=== PATIENT | male | born 1960 | race American Indian/Alaskan Native ===

== ENCOUNTER 2018-01-10 14:53 | Emergency (ER) | payer OTHER ==
[2018-01-10] MEDS ORDERED: fentaNYL 100 MCG/2 ML SDV IVPUSH ONE (15:17)
[2018-01-10] MEDS ORDERED: Lidocaine 1% with EPINEPHrine 1:100,000 20 ML MDV INJECT ONE (15:17)
--- NOTE | 2018-01-10 15:45 | EDM.PDOC ---
ED HPI GENERAL MEDICAL PROBLEM - General Chief Complaint: Laceration Stated Complaint: HEAD INJURY AT WORK Time Seen by Provider: 01/10/18 15:15 Source of Information: Reports: Patient History Limitations: Reports: No Limitations - History of Present Illness INITIAL COMMENTS - FREE TEXT/NARRATIVE: Patient presents to ER with a large laceration to the left side of his head. was up on a ladder working on his house when it slipped on the ice and he fell. landed on his feet but fell back hitting his head on the ladder. No loss of consciousness. Was able to get himself up and go to a friend for help. Denies any neck pain. does have pain to the laceration site but real considerable headache. Denies any chest discomfort or shortness of breath. He does have an abrasion to his right leg and mild swelling of his right thumb as he thinks he caught his hand when reaching out to try to stop himself from falling. Denies any nausea at present. Onset: Today, Sudden Duration: Minutes: Location: Reports: Head, Lower Extremity, Right Quality: Reports: Throbbing Severity: Moderate Improves with: Reports: Rest Associated Symptoms: Reports: Headaches. Denies: Confusion, Nausea/Vomiting, Shortness of Breath, Syncope - Related Data Allergies Allergy/AdvReac Type Severity Reaction Status Date / Time No Known Allergies Allergy Verified 02/13/16 16:49 Home Meds: Home Meds Atenolol 50 mg PO DAILY 02/13/16 [History] Simvastatin [Zocor] 20 mg PO BEDTIME 02/13/16 [History] Past Medical History Cardiovascular History: Reports: High Cholesterol, Hypertension - Past Surgical History Musculoskeletal Surgical History: Reports: Knee Replacement Social & Family History - Family History Family Medical History: Noncontributory - Caffeine Use Caffeine Use: Reports: Coffee ED ROS GENERAL - Review of Systems Review Of Systems: See Below Constitutional: Denies: Fever, Chills, Weakness, Decreased Appetite HEENT: Denies: Ear Discharge, Ear Pain, Vertigo, Vision Change Respiratory: Denies: Shortness of Breath, Cough Cardiovascular: Denies: Chest Pain, Lightheadedness Endocrine: Denies: Fatigue GI/Abdominal: Denies: Abdominal Pain, Nausea, Vomiting : Reports: No Symptoms Musculoskeletal: Reports: Leg Pain, Other (thumb pain). Denies: Neck Pain, Back Pain Skin: Reports: Wound Neurological: Reports: Headache. Denies: Confusion, Dizziness, Syncope, Weakness Psychiatric: Reports: No Symptoms ED EXAM, HEAD INJURY - Physical Exam Exam: See Below Text/Narrative:: Patient presents with large laceration to head. Did not have loss of consciousness. GCS 15. Airway patent Lung sounds clear, good oxygen sats. No neck tenderness with slow good range of motion noted, no vertebral tenderness by exam. Neuro exam all intact, Cranial nerves all intact. No gait ataxia. No dizziness with sitting patient up at the edge of the bed No pelvic instability or pain Exam Limited By: No Limitations General Appearance: Alert, WD/WN, No Apparent Distress Head: Normocephalic, Scalp Lacerations. No: Rowan's Sign Nexus Criteria: No: Posterior, Midline Cervical Tenderness, Evidence of Intoxication, Altered Level of Consciousness, Focal Neurological Deficit, Painful Distraction Injuries Eyes: Bilateral Eye: EOMI, PERRL Ears: Normal External Exam, Normal TMs Nose: Normal Inspection, Normal Mucousa, No Blood Throat/Mouth: Normal Inspection, Normal Oropharynx Neck: Non-Tender, Full Range of Motion, Normal Alignment, Normal Inspection Respiratory: No Respiratory Distress, Lungs Clear, Normal Breath Sounds Cardiovascular: Regular Rate, Rhythm GI/Abdominal Exam: Normal Bowel Sounds, Soft, Non-Tender Extremities: Other (Small hematoma/ecchymotic area to right calf. Abrasion noted to skin. right thumb is mildly swollen and bruised. has good range of motion without pain and with resistance.) Neurologic: rn social services II-XII nml As Tested, No Motor/Sensory Deficits, Alert, Normal Mood/Affect, Oriented x 3 Skin: Other (wound to scalp) - Jesse Coma Score Best Eye Response (Ten Sleep): (4) Open Spontaneously Best Verbal Response (Jesse): (5) Oriented Best Motor Response (Ten Sleep): (6) Obeys Commands ED LACERATION/WOUND & TOI PROC - Laceration/Wound Repair Left Head Lac/wound length in cm: 17 Anesthetic Type: Local Local Anesthesia - Lidocaine (Xylocaine): 1% with EPI Local Anesthetic Volume: Other (12) Skin Prep: Saline, Other (saf-clens) Exploration/Debridement/Repair: Wound Explored, Explored to Base (hair shaved and trimmed around the wound) Closed with: Jamie (32) Sterile Dressing Applied: Nurse Tetanus Status Addressed: Yes Complications: No Course - Vital Signs Last Recorded V/S: Last Vital Signs Temp 99.3 F 01/10/18 15:10 Pulse 67 01/10/18 15:10 Resp 20 01/10/18 15:10 BP 185/83 H 01/10/18 15:10 Pulse Ox 97 01/10/18 15:10 - Orders/Labs/Meds Orders: Active Orders 24 hr Category Date Time Status Vaccines to be Administered [RC] PER UNIT ROUTINE Care 01/10/18 15:58 Active Meds: Medications Discontinued Medications Generic Name Dose Route Start Last Admin Trade Name Freq PRN Reason Stop Dose Admin Diphtheria/Tetanus/Acell Pertussis 0.5 ml 01/10/18 15:57 01/10/18 16:16 Adacel IM 01/10/18 15:58 Not Given .ONCE ONE Fentanyl 50 mcg 01/10/18 15:17 01/10/18 15:25 Sublimaze IVPUSH 01/10/18 15:18 50 mcg ONETIME ONE Administration Lidocaine/Epinephrine 20 ml 01/10/18 15:17 01/10/18 15:10 Xylocaine 1% With Epinephrine 1:100,000 INJECT 01/10/18 15:18 20 ml ONETIME ONE Administration Neomycin/Polymyxin/Bacitracin 1 each 01/10/18 15:59 01/10/18 16:04 Triple Antibiotic Oint TOP 01/10/18 16:00 1 each ONETIME ONE Administration Neomycin/Polymyxin/Bacitracin Confirm 01/10/18 15:52 Triple Antibiotic Oint Administered 01/10/18 15:53 Dose 6 each .ROUTE .[facility] - Re-Assessments/Exams Free Text/Narrative Re-Assessment/Exam: 01/10/18 1540 Neuro exam reevaluated after staple repair, remains unchanged and negative. Departure - Departure Time of Disposition: 15:43 Disposition: Home, Self-Care 01 Condition: Fair Clinical Impression: Broken skin - Discharge Information *PRESCRIPTION DRUG MONITORING PROGRAM REVIEWED*: No *COPY OF PRESCRIPTION DRUG MONITORING REPORT IN PATIENT LEN: No Instructions: Head Injury, Adult, Wound Care, Adult Forms: ED Department Discharge Additional Instructions: 1. head injury instructions 2. wound care instructions 3. If any neurological changes, confusion, vomiting, vision changes, needs to return for CT scan of the head 4. Stay with someone today for observation 5. Jamie out next Saturday with Kimmy Buchanan PA-C in [place] 6. Call with any questions - My Orders Last 24 Hours: My Active Orders 01/10/18 15:58 Vaccines to be Administered [RC] PER UNIT ROUTINE - Assessment/Plan Last 24 Hours: My Active Orders 01/10/18 15:58 Vaccines to be Administered [RC] PER UNIT ROUTINE
[2018-01-10] MEDS ORDERED: Bacitracin/Neomycin/Polymyxin B Oint 0.9 GM U/D Packet ONE (15:52)
[2018-01-10] MEDS ORDERED: Diphtheria,Pertussis(Acell),Tetanus Vaccine 0.5 ML Syringe IM ONE ×2 (15:57→16:10)
[2018-01-10] MEDS ORDERED: Bacitracin/Neomycin/Polymyxin B Oint 0.9 GM U/D Packet TOP ONE (15:59)
[2018-01-10 16:57] VITALS: BP 185/83
== END 2018-01-10 16:25 | disposition home or self-care (01) ==
LOC: CC.ED 14:53
DX: S01.01XA Laceration without foreign body of scalp, initial encounter (principal); S80.11XA Contusion of right lower leg, initial encounter; S60.011A Contusion of right thumb without damage to nail, initial encounter; I10 Essential (primary) hypertension; Z23 Encounter for immunization; W11.XXXA Fall on and from ladder, initial encounter
CPT/HCPCS: 12005; 90471; 96374; 99283; J3010; 90715

== ENCOUNTER 2018-09-19 00:25 | Emergency (ER) | payer SELFPAY ==
[2018-09-19 00:28] VITALS: BP 121/73
[2018-09-19] MEDS ORDERED: cefTRIAXone 1 GM Vial IM ONE (01:02)
[2018-09-19] MEDS ORDERED: Ketorolac 60 MG/2 ML SDV IM ONE (01:02)
[2018-09-19] MEDS ORDERED: Take Home: Acetaminophen/HYDROcodone 325-5 MG, 2 Tab Pack PO ONE (01:02)
[2018-09-19] MEDS ORDERED: Lidocaine 1% 20 ML MDV INJECT ONE (01:08)
--- NOTE | 2018-09-19 01:08 | EDM.PDOC ---
ED HPI GENERAL MEDICAL PROBLEM - General Chief Complaint: General Stated Complaint: "hemorrhoids hurting after I fell yesterday" Time Seen by Provider: 09/19/18 00:50 Source of Information: Reports: Patient History Limitations: Reports: No Limitations - History of Present Illness INITIAL COMMENTS - FREE TEXT/NARRATIVE: Patient presents with complaints of left buttock/hemorrhoid pain. States slipped yesterday on the steps, fell and landed on his buttock. Had a great deal of discomfort to the area since that time. Thought it was related to a hemorrhoid. Has not been able to get comfortable since this occurred. Noted that it feels warm to the area as well. No fevers. Not aware of any open sores or cuts from the fall. Onset: Gradual Duration: Day(s): Location: Reports: Other (left buttock) Quality: Reports: Throbbing Severity: Moderate Improves with: Reports: None Associated Symptoms: Denies: Chest Pain, Cough, Fever/Chills, Loss of Appetite, Nausea/Vomiting, Shortness of Breath, Weakness HEMMORRHOIDS Pain Score (Numeric/FACES): 3 - Related Data Allergies Allergy/AdvReac Type Severity Reaction Status Date / Time No Known Allergies Allergy Verified 09/19/18 00:28 Home Meds: Home Meds Atenolol 50 mg PO DAILY 02/13/16 [History] Simvastatin [Zocor] 20 mg PO BEDTIME 02/13/16 [History] Past Medical History Other HEENT History: Laceration to head. Cardiovascular History: Reports: High Cholesterol, Hypertension - Past Surgical History Musculoskeletal Surgical History: Reports: Knee Replacement Social & Family History - Family History Family Medical History: Noncontributory - Tobacco Use Smoking Status *Q: Never Smoker - Caffeine Use Caffeine Use: Reports: Coffee ED ROS GENERAL - Review of Systems Review Of Systems: See Below Constitutional: Denies: Fever, Chills, Malaise, Weakness HEENT: Reports: No Symptoms Respiratory: Reports: No Symptoms Cardiovascular: Reports: No Symptoms Endocrine: Reports: No Symptoms GI/Abdominal: Denies: Abdominal Pain, Nausea, Vomiting Skin: Reports: Erythema. Denies: Wound Neurological: Reports: No Symptoms Psychiatric: Reports: No Symptoms ED EXAM, GENERAL - Physical Exam Exam: See Below Exam Limited By: No Limitations General Appearance: Alert, WD/WN, Mild Distress Head: Normocephalic Neck: Normal Inspection, Supple, Non-Tender Respiratory/Chest: No Respiratory Distress, Lungs Clear, Normal Breath Sounds Cardiovascular: Regular Rate, Rhythm GI/Abdominal: Normal Bowel Sounds, Soft, Non-Tender Rectal (Males) Exam: Tenderness, Other (patient has diffuse redness across left buttock, very warm to the touch. Skin taut. Unable to find any specific open area or boil. Small hemorrhoid visualized, no acute concerns with that. ) Extremities: Normal Inspection, No Pedal Edema Neurological: Alert, Oriented Skin Exam: Erythema, Increased Warmth Course - Vital Signs Last Recorded V/S: Last Vital Signs Temp 98.8 F 09/19/18 00:26 Pulse 97 09/19/18 00:26 Resp 20 09/19/18 00:26 BP 121/73 09/19/18 00:26 Pulse Ox 97 09/19/18 00:26 Departure - Departure Time of Disposition: 01:06 Disposition: Home, Self-Care 01 Condition: Fair Clinical Impression: Cellulitis and abscess of buttock - Discharge Information *PRESCRIPTION DRUG MONITORING PROGRAM REVIEWED*: No *COPY OF PRESCRIPTION DRUG MONITORING REPORT IN PATIENT LEN: No Instructions: Cellulitis, Adult Additional Instructions: 1. Rest 2. Push fluids 3. Soak in warm tub~ if note area of localization, may need to have lanced 4. Clindamycin 300 mg every 6 hours 5. [place] 5/325- one tab every 6 hours for pain 6. Call with any questions or concerns.
== END 2018-09-19 01:32 | disposition home or self-care (01) ==
LOC: CC.ED 00:25
DX: L02.31 Cutaneous abscess of buttock (principal); L03.317 Cellulitis of buttock; I10 Essential (primary) hypertension
CPT/HCPCS: 96372; 99282; A9270; J0696; J1885; J2001

== ENCOUNTER 2018-09-20 11:29 | Emergency (ER) | payer SELFPAY ==
[2018-09-20] MEDS ORDERED: Amoxicillin/Clavulanate K 875-125 MG Tab PO ONE (11:30)
--- NOTE | 2018-09-20 11:52 | EDM.PDOC ---
ED HPI GENERAL MEDICAL PROBLEM - General Chief Complaint: General Stated Complaint: need boil lanced Time Seen by Provider: 09/20/18 11:36 Source of Information: Reports: Patient History Limitations: Reports: No Limitations - History of Present Illness INITIAL COMMENTS - FREE TEXT/NARRATIVE: This patient is a 58 year old male that presents to the ER. Patient reports on he had an abscess and redness that began around his rectum and right buttock. Patient reports that he was seen yesterday and told area was to hard and could not drain, was placed on abx tx. Patient reports that today it feels like it is larger and hurts worse so he returned to the ER in hopes to have it drained. Patient denies ellington, dizziness, n, v, d, f. Onset Date: 09/18/18 Duration: Day(s): (2) Location: Reports: Other (buttock) Front/Back Body Image: 1 - hard, cellulitic erythema. Severity: Moderate Improves with: Reports: None Worsens with: Reports: None Associated Symptoms: Denies: Confusion, Chest Pain, Cough, cough w sputum, Diaphoresis, Fever/Chills, Headaches, Loss of Appetite, Malaise, Nausea/Vomiting , Rash, Seizure, Shortness of Breath, Syncope, Weakness Right Buttock Pain Score (Numeric/FACES): 7 - Related Data Allergies Allergy/AdvReac Type Severity Reaction Status Date / Time No Known Allergies Allergy Verified 09/20/18 11:34 Home Meds: Home Meds Atenolol 50 mg PO DAILY 02/13/16 [History] Simvastatin [Zocor] 20 mg PO BEDTIME 02/13/16 [History] Past Medical History Other HEENT History: Laceration to head. Cardiovascular History: Reports: High Cholesterol, Hypertension - Past Surgical History Musculoskeletal Surgical History: Reports: Knee Replacement Social & Family History - Family History Family Medical History: Noncontributory - Caffeine Use Caffeine Use: Reports: Coffee ED ROS GENERAL - Review of Systems Review Of Systems: See Below Constitutional: Reports: No Symptoms. Denies: Fever HEENT: Reports: No Symptoms Respiratory: Reports: No Symptoms Cardiovascular: Reports: No Symptoms Endocrine: Reports: No Symptoms GI/Abdominal: Reports: No Symptoms : Reports: No Symptoms Musculoskeletal: Reports: No Symptoms Skin: Reports: Erythema (right buttock) Neurological: Reports: No Symptoms Psychiatric: Reports: No Symptoms Hematologic/Lymphatic: Reports: No Symptoms Immunologic: Reports: No Symptoms ED EXAM, GENERAL - Physical Exam Exam: See Below Exam Limited By: No Limitations General Appearance: Alert, WD/WN, No Apparent Distress Eye Exam: Bilateral Eye: Normal Inspection, PERRL Ears: Normal External Exam, Normal Canal, Hearing Grossly Normal, Normal TMs Ear Exam: Bilateral Ear: Auricle Normal, Canal Normal, TM normal Nose: Normal Inspection, Normal Mucosa, No Blood Throat/Mouth: Normal Inspection, Normal Lips, Normal Teeth, Normal Gums, Normal Oropharynx, Normal Voice, No Airway Compromise Head: Atraumatic, Normocephalic Neck: Normal Inspection, Supple, Non-Tender, Full Range of Motion Respiratory/Chest: No Respiratory Distress, Lungs Clear, Normal Breath Sounds, No Accessory Muscle Use Cardiovascular: Normal Peripheral Pulses, Regular Rate, Rhythm, No Edema, No Gallop, No JVD, No Murmur, No Rub Peripheral Pulses: 2+: Radial (L), Radial (R), Posterior Tibial (L), Posterior Tibial (R), Dorsalis Pedis (L), Dorsalis Pedis (R) GI/Abdominal: Normal Bowel Sounds, Soft, Non-Tender, No Organomegaly, No Distention, No Abnormal Bruit, No Mass, Pelvis Stable Rectal (Males) Exam: Other (Right buttock redness, heat. hard to touch. no obvious area of fluctulance. Source believed to be perirectal abscess. ) Back Exam: Normal Inspection, Full Range of Motion Extremities: Normal Inspection, Normal Range of Motion, Non-Tender, No Pedal Edema, Normal Capillary Refill Neurological: Alert, Oriented, Normal Cognition, Normal Gait, No Motor/Sensory Deficits Psychiatric: Normal Affect, Normal Mood Skin Exam: Warm, Dry, Intact, Normal Color, No Rash Lymphatic: No Adenopathy ED GENERAL MEDICAL PROCEDURES - Additional/Other Procedure(s) Other (Free Text) Procedure(s): Area cleaned with betadine. Lidocaine 1% 4ml using 27g needed given locally. Then 11blade used to make a small incision near rectum right. small amount of blood but no pus drainage. hemostats used to break up pus, but no pus. Area was cleaned and dressed. No complications. Course - Vital Signs Last Recorded V/S: Last Vital Signs Temp 99.0 F 09/20/18 12:26 Pulse 78 09/20/18 12:26 Resp 18 09/20/18 12:26 BP 116/54 L 09/20/18 12:26 Pulse Ox 98 09/20/18 12:26 - Orders/Labs/Meds Orders: Active Orders 24 hr Category Date Time Status CULTURE BLOOD [BC] Stat Lab 09/20/18 12:15 Received CULTURE BLOOD [BC] Stat Lab 09/20/18 12:15 Received Blood Culture x2 Reflex Set [OM.PC] Stat Oth 09/20/18 11:56 Ordered Labs: Laboratory Tests 09/20/18 09/20/18 09/20/18 Range/Units 12:15 12:15 12:15 WBC 14.5 H (5.0-10.0) 10^3/uL RBC 5.26 (4.50-6.00) 10^6/uL Hgb 15.1 (14.0-18.0) g/dL Hct 44.5 (40.0-54.0) % MCV 84.6 (82.0-94.0) fL MCH 28.7 (27.0-32.0) pg MCHC 33.9 (33.0-38.0) g/dL RDW Coeff of Ivette 14.5 (11.0-15.0) % Plt Count 163 (150-400) 10^3/uL Neut % (Auto) 75.1 (35-85) % Lymph % (Auto) 10.7 (10-55) % [place] % (Auto) 10.8 (0-16) % Eos % (Auto) 3.1 (0-5) % Baso % (Auto) 0.3 (0-3) % Neut # (Auto) 10.88 H (1.80-7.00) 10^3/uL Lymph # (Auto) 1.55 (1.00-4.80) 10^3/uL [place] # (Auto) 1.57 H (0.00-0.80) 10^3/uL Eos # (Auto) 0.45 (0.00-0.45) 10^3/uL Baso # (Auto) 0.04 10^3/uL Sodium 139 (136-145) mEq/L Potassium 3.3 L (3.5-5.0) mEq/L Chloride 99 (98-106) mEq/L Carbon Dioxide 33 H (21-32) mmol/L BUN 19 H (7-18) mg/dL Creatinine 1.0 (0.7-1.3) mg/dL Est Cr Clr Drug Dosing 83.67 mL/min Estimated GFR (MDRD) > 60 (>=60) mL/min Glucose 150 H (75-99) mg/dL Lactic Acid 1.2 (0.4-2.0) mmol/L Calcium 9.4 (8.4-10.1) mg/dL Total Bilirubin 0.6 (0.0-1.0) mg/dL AST 16 (15-37) U/L ALT 41 (12-78) U/L Alkaline Phosphatase 105 (46-116) U/L C-Reactive Protein 24.2 H (0.2-0.8) mg/dL Total Protein 7.3 (6.4-8.2) g/dL Albumin 3.2 L (3.4-5.0) g/dL Meds: Medications Discontinued Medications Generic Name Dose Route Start Last Admin Trade Name Linda PRN Reason Stop Dose Admin Amoxicillin/Clavulanate Potassium 2 packet 09/20/18 13:21 09/20/18 13:27 Take Home: Amox/Clavulanate 875-12, 2 Tab Pac PO 09/20/18 13:22 Not Given ONETIME ONE Ceftriaxone Sodium 1 gm 09/20/18 13:21 09/20/18 13:27 Rocephin IVPUSH 09/20/18 13:22 1 gm ONETIME ONE Administration Lidocaine HCl 20 ml 09/20/18 12:55 09/20/18 13:28 Xylocaine 1% INJECT 09/20/18 12:56 20 ml ONETIME ONE Administration Morphine Sulfate 4 mg 09/20/18 11:57 09/20/18 12:24 Morphine IVPUSH 09/20/18 11:58 4 mg ONETIME ONE Administration Morphine Sulfate Confirm 09/20/18 12:06 09/20/18 12:25 Morphine Administered 09/20/18 12:07 Not Given Dose 4 mg IV .STK-MED ONE Ondansetron HCl 4 mg 09/20/18 11:57 09/20/18 12:24 Zofran IVPUSH 09/20/18 11:58 4 mg NOW STA Administration - Re-Assessments/Exams Free Text/Narrative Re-Assessment/Exam: 09/20/18 13:34 This weekend I do not have US capability. Would CT scan the area. I also want to admit this patient on IV Abx due to buttock cellulitis. The patient refuses. He does not want the US, CT, or admit. Patient reports he does not have the finances for the bill and he will drive to the [facility] where he can get that for free if need be. The patient was educated that this could worsen and he could get more ill and result in . The patient still refuses admit and testing. Educated patient to return if he changes his mind or worsens. Patient will be discharged against my recommendation. Departure - Departure Time of Disposition: 13:22 Disposition: Home, Self-Care 01 Condition: Fair Clinical Impression: Cellulitis and abscess of buttock - Discharge Information *PRESCRIPTION DRUG MONITORING PROGRAM REVIEWED*: Not Applicable *COPY OF PRESCRIPTION DRUG MONITORING REPORT IN PATIENT LEN: Not Applicable Instructions: Cellulitis, Adult, [id number] Referrals: PCP,Unknown [Primary Care Provider] - Forms: ED Department Discharge Additional Instructions: Followup with primary care provider Saturday Return to the ER for worsening of condition or any emergent concerns such as fever, vomiting, worsening of redness. Please return if you change your mind about admission Augmentin 875mg 1 pill twice a day for 10 days #20 no refill, #4 given take home in ER Stop taking Clindamycin Warm Sitz baths - My Orders Last 24 Hours: My Active Orders 09/20/18 11:56 Blood Culture x2 Reflex Set [OM.PC] Stat 09/20/18 12:15 CULTURE BLOOD [BC] Stat CULTURE BLOOD [BC] Stat - Assessment/Plan Last 24 Hours: My Active Orders 09/20/18 11:56 Blood Culture x2 Reflex Set [OM.PC] Stat 09/20/18 12:15 CULTURE BLOOD [BC] Stat CULTURE BLOOD [BC] Stat Plan: please see rn note for pfsh.
[2018-09-20] MEDS ORDERED: Ondansetron 4 MG/2 ML SDV IVPUSH STA (11:57)
[2018-09-20] MEDS ORDERED: Morphine 4 MG/ML Syringe IVPUSH ONE (11:57)
[2018-09-20 12:30] VITALS: BP 116/54
[2018-09-20 12:34] LABS: CHLORIDE,CL 99 mEq/L (98-106); SODIUM,NA 139 mEq/L (136-145)
[2018-09-20] MEDS ORDERED: Lidocaine 1% 20 ML MDV INJECT ONE (12:55)
[2018-09-20] MEDS ORDERED: cefTRIAXone 1 GM Vial IVPUSH ONE (13:21)
[2018-09-20] MEDS ORDERED: Take Home: Amoxicillin/Clavulanate K 875-125 MG Tab, 2 Tab Pack PO ONE (13:21)
== END 2018-09-20 13:40 | disposition home or self-care (01) ==
LOC: CC.ED 11:29
DX: L02.31 Cutaneous abscess of buttock (principal); L03.317 Cellulitis of buttock
CPT/HCPCS: 10060; 36415; 80053; 83605; 85025; 86140; 87040; 96374; 96375; 99282; A9270; J0696; J2001; J2270; J2405

== ENCOUNTER 2022-11-29 05:44 | Emergency (ER) | payer SELFPAY ==
[2022-11-29 05:57] VITALS: BP 144/87; PULSE 69
[2022-11-29] MEDS ORDERED: Fluorescein 1 MG Ophth Strip EYERT ONE (06:16)
[2022-11-29] MEDS ORDERED: Tetracaine HCl/PF 0.5% 4 ML Bottle EYERT ONE (06:16)
[2022-11-29] MEDS ORDERED: Ketorolac 30 MG/ML SDV IM ONE (06:35)
[2022-11-29] MEDS ORDERED: Cyclopentolate 2% Ophth Soln 5 ML Bottle EYERT ONE (06:35)
[2022-11-29] MEDS ORDERED: Ciprofloxacin 0.3% Ophth Soln 2.5 ML Bottle EYERT SCH (06:45)
[2022-11-29] MEDS ORDERED: Ciprofloxacin 0.3% Ophth Soln 5 ML Bottle EYERT SCH (07:15)
== END 2022-11-29 07:20 | disposition home or self-care (01) ==
LOC: CC.ED 05:44
DX: T15.91XA Foreign body on external eye, part unspecified, right eye, initial encounter (principal); E78.00 Pure hypercholesterolemia, unspecified; I10 Essential (primary) hypertension; Z79.899 Other long term (current) drug therapy; Z87.891 Personal history of nicotine dependence
CPT/HCPCS: 96372; 99283; A9270-GY; J1885; J3490